=== PATIENT | female | born 1990 | race Caucasian/White ===

== ENCOUNTER 2021-08-12 05:50 | Emergency (ER) | payer SELFPAY | END 2021-08-12 07:32 | LOC: ER 05:53 | DX: R69 Illness, unspecified (principal) ==

== ENCOUNTER 2022-08-11 05:20 | Emergency (ER) | payer BC, SELFPAY | END 2022-08-11 12:00 | LOC: ER 05:25 | DX: Z53.21 Procedure and treatment not carried out due to patient leaving prior to being seen by health care provider (principal) ==